=== PATIENT | female | born 1970 | race Caucasian/White ===

== ENCOUNTER 2018-11-09 10:37 | Outpatient (CLI) | payer MEDICAID | END 2018-11-09 10:38 | disposition home or self-care (01) | LOC: C.MAMMO 10:37 | DX: Z12.31 Encounter for screening mammogram for malignant neoplasm of breast (principal) ==

== ENCOUNTER 2018-11-09 10:50 | Outpatient (CLI) | payer MEDICAID | END 2018-11-09 10:51 | disposition home or self-care (01) | LOC: C.DEXAIC 10:50 ==